=== PATIENT | female | born 1965 | race Caucasian/White ===

== ENCOUNTER 2020-08-03 08:04 | Outpatient (CLI) | payer OTHER, SELFPAY ==
--- NOTE | ~2020-08-03 | XR_ITS ---
EXAMINATION: XR enema water soluble DATE: 08/03/2020 09:06 INDICATION: Colovaginal fistula. Passing gas through vagina. TECHNIQUE: A airbrush artist technical radiograph was obtained. A catheter was inserted into the patient's rectum. Contra st was infused by gravity. Fluoroscopic spot images and conventional radiographs were obtained. Fluor oscopy exposure time was 0.7 minutes. The total number of images was 30. COMPARISON: None. FINDINGS: There is no abnormal mass or stricture. There is no colovaginal fistula. IMPRESSION: 1. Normal contrast enema. No colovaginal fistula. Reviewed, dictated and finalized at location A.
== END 2020-08-03 08:05 | disposition home or self-care (01) ==
LOC: ANHIMG 08:11
PROVIDERS: Visit Provider Obstetrics & Gynecology
DX: K60.4 Rectal fistula (principal)
CPT/HCPCS: 74270